=== PATIENT | male | born 1960 | race Caucasian/White ===

== ENCOUNTER 2016-07-15 19:39 | Emergency (ER) | payer OTHER, BC ==
--- NOTE | 2016-07-23 01:20 | ER ---
ADMIT: 07/15/2016 RM/LOC: ER [facility] MR#: [id number] [id number] [place], [place] [id number] [address] [place] [address] Emergency Room Report SEX: M AGE: 55 : 1960 DATE: 07/15/2016 CHIEF COMPLAINT: Passed out. 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 This was witnessed by bystanders at work, who are not here to give the account, but told him that they thought he was only out for a few seconds. When he was on the floor, he woke up very shortly after going down and denies any pain and states he was told he did not hit his head. He states he had been working for several hours and not been drinking much water today and felt like he was warm and flushed. He denied any chest pain or shortness of breath. He does not have any complaints of numbness, tingling, or weakness in any extremity. He has no history of any medical problems and does not take any medications regularly. The patient other than having some mild nausea feels like he is back to baseline at this time. PAST MEDICAL HISTORY: Unremarkable. MEDICATIONS: None. ALLERGIES: NONE. SOCIAL HISTORY: The patient quit smoking about 8 years ago. Does rarely use marijuana and admits to daily alcohol use of a couple of beers. PHYSICAL EXAMINATION: VITAL SIGNS: Blood pressure is 140/65, pulse 64, respirations 18, temp 96.7, sats 98% on room air. HEENT: Head is atraumatic. Pupils are equal, round, reactive to light. Extraocular muscles are intact. NECK: Supple. HEART: Regular rate and rhythm. LUNGS: Clear to auscultation. ABDOMEN: Soft. SKIN: Warm and dry. NEUROLOGIC: Grossly intact in all 4 extremities. He has no cerebellar defects. There is no cyanosis. EKG shows sinus rhythm, rate of 67. There was likely some LVH, but no other abnormalities could be appreciated. Orthostatics were fine. MEDICAL DECISION MAKING: Based on the patient's physical exam, he seems like he was back to baseline and has really no complaints other than some mild nausea, which was given for Zofran and resolved in the ER. The patient states ADMIT: 07/15/2016 RM/LOC: ER [facility] MR#: [id number] [address] [id number] [place] [address] Emergency Room Report SEX: M AGE: 55 : 1960 that he had been working quite vigorously at work and did feel warm, and his story is consistent with a likely vasovagal episode. Does not sound like he had any seizure activity whatsoever and was alert within seconds of going down to the floor. He is not complaining of any pain at this time and I could see no signs of trauma on physical exam. Based on his normal exam now, normal EKG other than LVH and normal orthostatics and vital signs, I believe the patient is safe to be discharged home at this time. He states he has seen Dr. Couch in the past, but it has been sometime, so he was given instructions to follow up with Dr. Couch's office in the next several weeks. He can return to the ER for any concerning symptoms. DIAGNOSIS: Syncopal episode. Lewis Stokes MD/ lawanda JOB #: [id number] CC: Kailash Anthony MD, Attending Physician Virgilio Couch MD, Family Physician
== END 2016-07-15 21:20 | disposition home or self-care (01) ==
LOC: ER 19:39
DX: R55 Syncope and collapse (principal); Z87.891 Personal history of nicotine dependence